=== PATIENT | female | born 1935 | race Native Hawaiian/Other Pacific Islander ===

== ENCOUNTER 2016-08-15 02:01 | Outpatient (CLI) | payer OTHER | END 2016-08-15 19:43 | disposition home or self-care (01) | LOC: AMB 02:01 | DX: M25.512 Pain in left shoulder (principal); M79.602 Pain in left arm; W18.39XA Other fall on same level, initial encounter; Y92.098 Other place in other non-institutional residence as the place of occurrence of the external cause | CPT/HCPCS: A0425; A0427 ==

== ENCOUNTER 2016-08-15 02:26 | Emergency (ER) | payer OTHER ==
[~2016-08-15] VITALS: Ht 165.1 cm; Wt 108.9 kg
[2016-08-15 02:39] VITALS: TEMP 97.9
[2016-08-15 07:50] VITALS: BP 157/72
== END 2016-08-15 07:50 | disposition home or self-care (01) ==
LOC: ED 02:26
DX: S42.292A Other displaced fracture of upper end of left humerus, initial encounter for closed fracture (principal); W18.39XA Other fall on same level, initial encounter; Y92.098 Other place in other non-institutional residence as the place of occurrence of the external cause
CPT/HCPCS: 96372; 99283; J2270; J2405

== ENCOUNTER 2016-08-15 17:56 | Outpatient (CLI) | payer OTHER | END 2016-08-15 18:35 | disposition short-term general hospital (02) | LOC: AMB 17:56 | DX: M25.512 Pain in left shoulder (principal); W07.XXXA Fall from chair, initial encounter; Y92.098 Other place in other non-institutional residence as the place of occurrence of the external cause | CPT/HCPCS: A0425; A0427 ==